=== PATIENT | female | born 1980 | race Caucasian/White ===

== ENCOUNTER 2023-01-06 12:53 | Outpatient (CLI) | payer OTHER, SELFPAY ==
--- NOTE | 2023-01-06 13:00 | MM_ITS ---
WS: [id number] BILATERAL 3D TOMOSYNTHESIS DIGITAL SCREENING MAMMOGRAPHY WITH CAD CLINICAL INFORMATION: SCREENING HISTORY: Screening mammogram. No current complaints. COMPARISON: Baseline TECHNIQUE: Bilateral CC and MLO views. FINDINGS: The breasts are composed of heterogeneous fibroglandular density tissue, which can limit the detectio n of small underlying mass lesions. No suspicious mass, asymmetry, calcifications, or architectural d istortion. No evidence of malignancy. Incidental punctate calcifications. MM/[id number] IMPRESSION: BI-RADS: 2-Benign FOLLOW UP: 1 Year Follow-up Recommend return to annual screening mammography.
== END 2023-01-06 12:54 | disposition home or self-care (01) ==
PROVIDERS: PCP Nurse Practitioner; Visit Provider Nurse Practitioner
DX: Z12.31 Encounter for screening mammogram for malignant neoplasm of breast (principal)
CPT/HCPCS: 77063; 77067

== ENCOUNTER 2023-10-07 06:05 | Day surgery (SDC) | payer OTHER, SELFPAY ==
[2023-10-07 06:22] VITALS: BP 131/92; PULSE 69; RESP 18; TEMP 36.3; O2SAT 100; BMI 33.6
[2023-10-07] MEDS: sodium chloride 0.9% 1,000 ML 30 ML IV (06:32)
--- NOTE | 2023-10-07 06:37 | W.PM.OPSFHP ---
Same Day Surgery H&P Indication for Procedure/HPI DATE OF PROCEDURE: October 07, 2023 CHIEF COMPLAINT/INDICATIONFOR SURGICAL PROCEDURE: hematochezia and rectal pain PREOP DIAGNOSIS: rectal pain PLANNED PROCEDURE: Operation Date: 10/07/23 07:00 [place] [id number] colonoscopy K62.89, R19.8(Not Applicable) - Germán Guillen MD Medications/Allergies* Allergies/Adverse Reactions Allergy/AdvReac Type Severity Reaction Status Date / Time No Known Allergies Allergy Unverified 07/27/23 11:38 Current Medications: Generic Name Dose Route Start Last Admin Trade Name Freq PRN Reason Stop Dose Admin Sodium Chloride 1,000 mls @ 30 mls/hr 10/07/23 06:15 10/07/23 06:32 Sodium Chloride 0.9% IV 10/08/23 06:14 30 mls/hr .Q24H MCKINLEY Administration Pertinent History/Comorbid Conditions* Medical History (Updated 07/27/23 @ 12:14 by Germán Guillen MD) Nausea Bronchitis Acute bacterial sinusitis Social History Smoking and tobacco/nicotine status: never used tobacco/nicotine Alcohol intake: current Alcohol intake frequency: holidays/special occasions only Pertinent Exam Findings alert, oriented x 3 and clear to auscultation bilaterally Recommendations Surgery/Procedure today Coding Level of Care Code Acute Code for Chg Fwd
--- NOTE | 2023-10-07 06:50 | ANES.PREANE2 ---
Pre-Anesthetic Assessment Height/Weight: Height 1.6 m Weight 86.183 kg Temp Pulse Resp BP Pulse Ox O2 Del Method 97.3 F L 69 18 131/92 100 Room Air 10/07/23 06:22 10/07/23 06:22 10/07/23 06:22 10/07/23 06:22 10/07/23 06:22 10/07/23 06:22 Preop Diagnosis: rectal pain Operation Date: 10/07/23 07:00 Proposed Procedures p [id number] colonoscopy K62.89, R19.8(Not Applicable) - Germán Guillen MD Familial anesthetic complications: NOne Was Beta Nelson taken within 24 hours: N/A Was Clonidine taken within 24 hours: N/A Last intake: Intake Last Liquid Date 10/06/23 Last Liquid Time 10:30 Last Solid Date 10/05/23 Last Solid Time 19:30 Social No alcohol and No tobacco Exam alert, oriented x 3, clear to auscultation bilaterally and regular rate & rhythm Airway Mallampati: Class II Dentition: other (missing) Anesthetic Plan ASA status: 1 Anesthesia: MAC Risk of > 500 ml blood loss (7ml/kg in children): No Medications/Allergies Home Medications Medication Instructions Recorded Confirmed Last Taken Type alprazolam 0.5 mg tablet 0.5 mg PO DAILY PRN anxiety #30 02/25/23 10/05/23 Unknown Rx tabs Allergies Allergy/AdvReac Type Severity Reaction Status Date / Time No Known Allergies Allergy Unverified 07/27/23 11:38 Current Medications Generic Name Dose Route Start Last Admin Trade Name Freq PRN Reason Stop Dose Admin Sodium Chloride 1,000 mls @ 30 mls/hr 10/07/23 06:15 10/07/23 06:32 Sodium Chloride 0.9% IV 10/08/23 06:14 30 mls/hr .Q24H MCKINLEY Administration PFSH Anesthesia Medical History (Updated 07/27/23 @ 12:14 by Germán Guillen MD) Nausea Bronchitis Acute bacterial sinusitis Social History (Updated 07/27/23 @ 11:48 by ASHLYN Vines) Smoking and tobacco/nicotine status: never used tobacco/nicotine Alcohol intake: current Alcohol intake frequency: holidays/special occasions only Data Anesthesia Cardiac Studies: No Data to Display
[2023-10-07 07:31] VITALS: BP 134/96; PULSE 78; RESP 12; TEMP 36.2; O2SAT 98
[2023-10-07 07:40] VITALS: BP 140/82; PULSE 66; RESP 16; O2SAT 97
[2023-10-07 07:50] LABS: OR HCG Qualitative Urine Negative (Negative)
--- NOTE | 2023-10-07 07:50 | ANE.PACU2 ---
Inpatient post-anesthesia follow up: Airway intact: Yes Vital signs: Temperature 97.2 F Pulse Rate 66 Respiratory Rate 16 Blood Pressure 140/82 Pulse Oximetry 97 Oxygen Delivery Me thod Room Air Oxygen Flow Rate Fraction of Inspir ed Oxygen Hydration adequate: Yes Nausea and vomiting: No Pain level: 1 Mental status: Baseline
== END 2023-10-07 07:53 | disposition home or self-care (01) ==
PROVIDERS: Anesthesiology; PCP Nurse Practitioner; Visit Provider Surgery
PROC: 0DJD8ZZ Inspection of Lower Intestinal Tract, Via Natural or Artificial Opening Endoscopic (ICD-10-PCS; CPT 45378; principal; 2023-10-07 07:00)
DX: K92.1 Melena (principal); K62.89 Other specified diseases of anus and rectum
CPT/HCPCS: 45378; 81025; 84703; J2704; J7030

== ENCOUNTER → 2024-01-06 16:25 | Outpatient (BNVA) | payer OTHER, SELFPAY | PROVIDERS: PCP Nurse Practitioner; Visit Provider Nurse Practitioner Family | DX: Z80.41 Family history of malignant neoplasm of ovary (principal); E66.9 Obesity, unspecified; F41.9 Anxiety disorder, unspecified; Z98.84 Bariatric surgery status; Z98.890 Other specified postprocedural states; Z98.51 Tubal ligation status; Z13.6 Encounter for screening for cardiovascular disorders; Z79.899 Other long term (current) drug therapy; Z12.31 Encounter for screening mammogram for malignant neoplasm of breast; Z80.3 Family history of malignant neoplasm of breast | CPT/HCPCS: 80053; 80061; 81162; 83036; 84443; 85025; 87400 ==

== ENCOUNTER 2024-02-17 13:42 | Outpatient (CLI) | payer OTHER, SELFPAY ==
--- NOTE | 2024-02-17 14:37 | MM_ITS ---
WS: [id number] BILATERAL 3D TOMOSYNTHESIS DIGITAL DIAGNOSTIC MAMMOGRAPHY WITH CAD CLINICAL INFORMATION: LEFT BREAST MASS HISTORY: LEFT breast lump COMPARISON: 01/06/2023 TECHNIQUE: Bilateral CC, MLO, and ML views. FINDINGS: The breasts are composed of heterogeneous fibroglandular density, which can limit the detection of sm all underlying mass lesions. Palpable marker upper outer LEFT breast. No underlying parenchymal abnor malities. Ultrasound of this area is pending. A few incidental punctate calcifications. RIGHT breast is unremarkable. ULTRASOUND BREAST LEFT TECHNIQUE: Ultrasound left breast focused area of concern. CLINICAL INFORMATION: LEFT BREAST MASS FINDINGS: Ultrasound area of interest at the 2 o'clock position. Dense underlying parenchymal tissue. No suspic ious abnormalities. Recommend return to annual screening mammography. MM/[place] [id number] IMPRESSION: BI-RADS: 2-Benign FOLLOW UP: 1 Year Follow-up Recommend return to annual screening mammography.
== END 2024-02-17 13:43 | disposition home or self-care (01) ==
PROVIDERS: PCP Nurse Practitioner; Visit Provider Nurse Practitioner Obstetrics & Gynecology
DX: N63.21 Unspecified lump in the left breast, upper outer quadrant (principal); R92.333 Mammographic heterogeneous density, bilateral breasts
CPT/HCPCS: 76642; 77062; G0279

== ENCOUNTER → 2025-04-18 15:27 | Outpatient (BNVA) | payer OTHER, SELFPAY | PROVIDERS: PCP Nurse Practitioner Family; Visit Provider Nurse Practitioner Family | DX: F41.9 Anxiety disorder, unspecified (principal); N95.1 Menopausal and female climacteric states; Z79.899 Other long term (current) drug therapy; Z13.6 Encounter for screening for cardiovascular disorders; D64.9 Anemia, unspecified; E83.42 Hypomagnesemia; E55.9 Vitamin D deficiency, unspecified; R53.83 Other fatigue | CPT/HCPCS: 80053; 80061; 81003; 82306; 82607; 82728; 82746; 83036; 83550; 83735; 84439; 84443; 85025; 86376 ==